=== PATIENT | male | born 1990 | race African-American/Black ===

== ENCOUNTER 2022-01-29 19:55 | Emergency (ER) | payer OTHER ==
[2022-01-29] MEDS ORDERED: Lidocaine 1% w/Epinephrine 1:200K 30 ML VIAL FS SCH (21:00)
[2022-01-29] MEDS ORDERED: Boostrix 0.5 ML (Tdap) VIAL ONE (21:55)
== END 2022-01-29 22:00 | disposition home or self-care (01) ==
LOC: ERS 19:55
DX: S01.112A Laceration without foreign body of left eyelid and periocular area, initial encounter (principal); Y04.2XXA Assault by strike against or bumped into by another person, initial encounter
CPT/HCPCS: 12011; 90471; 90715